=== PATIENT | male | born 1985 | race African-American/Black ===

== ENCOUNTER 2019-09-07 22:03 | Emergency (ER) | payer OTHER ==
[~2019-09-07] VITALS: Ht 175.3 cm; Wt 72.0 kg
[2019-09-07 22:03] VITALS: BP 151/93
[2019-09-07] MEDS ORDERED: METH4TAB2 PO (22:54)
[2019-09-07] MEDS ORDERED: KETOROLAC 60 MG/2 ML VIAL. IM ONE (23:00)
[2019-09-07] MEDS ORDERED: ORPHENADRINE CITRATE 60 MG/2 ML VIAL. IM ONE (23:00)
--- NOTE | 2019-09-08 18:36 | PHYS DOC ---
Past History Past Medical History: No Pertinent History Past Surgical History: No Surgical History Alcohol Use: None Adult General Chief Complaint Chief Complaint: LOWER BACK PAIN OR INJURY HPI HPI Patient is a male with history of chronic low back pain who presents with exacerbation of chronic back pain. Patient reports right lower lum bar paravertebral/sacral pain radiating to right thigh and hip. Pain is worse with palpation, lying supine and movement. Pain is described as sharp rated 10 out of 10. It is partial improvement with remaining still and rest. Patient has taken [id number] pain medications prior to ED arrival with limited improvement. Denies lower extremity motor weakness, loss of sensation or loss of bowel or bladder function or saddle anesthesia. No falls or trauma. Patient is currently a resident of the [facility]. 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 States he is previously been prescribed physical therapy without improvement. No other acute symptoms or complaints[] Review of Systems Review of Systems History of symptoms as per history of present illness. All other review symptoms are negative. All other systems were reviewed and found to be within normal limits, except as documented in this note. Current Medications Current Medications Current Medications Medications (Trade) Dose Ordered Sig/Hanna Start Time Stop Time Status Last Admin Dose Admin Ketorolac Tromethamine (Toradol Im) 60 mg 1X ONCE 09/07/19 23:00 09/07/19 23:01 DC 09/07/19 23:04 60 MG Orphenadrine Citrate (Norflex) 60 mg 1X ONCE 09/07/19 23:00 09/07/19 23:01 DC 09/07/19 23:04 60 MG Allergies Allergies Allergies Coded Allergies Type Severity Reaction Last Updated Verified No Known Drug Allergies 09/07/19 No Physical Exam Physical Exam Constitutional: Well developed, well nourished, no acute distress, non-toxic appearance. [] HENT: Normocephalic, atraumatic, bilateral external ears normal, oropharynx moist, no oral exudates, nose normal. [] Eyes: PERRLA, EOMI, conjunctiva normal, no discharge. [] Neck: Normal range of motion, no tenderness, supple, no stridor. [] Cardiovascular:Heart rate regular rhythm, no murmur [] Lungs & Thorax: Bilateral breath sounds clear to auscultation [] Abdomen: Bowel sounds normal, soft, no tenderness. [] Skin: Warm, dry. [] Back: No line tenderness, right lower lumbar/sacral tenderness to palpation, positive straight leg raising test. No Midline tenderness.. [] Extremities: No tenderness, no cyanosis, no clubbing, ROM intact, no edema. [] Neurologic: Alert and oriented X 3, bilateral lower extremities, normal motor function, normal sensory function, no focal deficits noted. [] Psychologic: Affect normal, judgement normal, mood normal. [] Current Patient Data Vital Signs Vital Signs Date Time Temp Pulse Resp B/P (MAP) Pulse Ox O2 Delivery O2 Flow Rate FiO2 09/07/19 22:03 99.7 75 18 151/93 (112) Room Air EKG EKG [] Radiology/Procedures Radiology/Procedures [] Course & Med Decision Making Course & Med Decision Making Pertinent Labs and Imaging studies reviewed. (See chart for details) [Acute exacerbation of chronic radicular lumbar syndrome. Pain addressed. Recommend outpatient follow-up for further evaluation and treatment.] Dragon Disclaimer Dragon Disclaimer This electronic medical record was generated, in whole or in part, using a voice recognition dictation system. Departure Departure: Impression: Primary Impression: Lumbar radiculopathy, chronic Disposition: HOME, SELF-CARE Condition: STABLE Patient Instructions: Radicular Pain Additional Instructions: Please avoid strenuous physical activity and heavy lifting. Take the prescribed medications as directed. Follow-up with local primary care provider for further evaluation. Scripts Methylprednisolone (MEDROL) 4 Mg Tab.ds.pk 1 PKG PO UD, #1 PKG Prov: LATASHA LOYOLA DO 09/07/19 LATASHA LOYOLA DO Sep 08, 2019 18:36
== END 2019-09-07 23:20 | disposition home or self-care (01) ==
LOC: ER 22:03
DX: M54.16 Radiculopathy, lumbar region (principal); G89.29 Other chronic pain
CPT/HCPCS: 96372; 99284; J1885; J2360